=== PATIENT | female | born 2000 | race Asian ===

== ENCOUNTER → 2018-08-10 04:15 | Emergency (ER) | payer OTHER ==
[~2018-08-10 04:15] MED LIST: Ibuprofen TAB* 600 MG PO PRN
--- NOTE | 2018-08-10 04:54 | ED ---
Lower Extremity - HPI Summary HPI Summary: This patient is a 18 year old F presenting to [facility] with a chief complaint of a sprained ankle since yesterday. She reports that the swelling and pain has worsened today. Patient reports bruising on left big toenail. She did not have an x-ray on her foot. - History of Current Complaint Chief Complaint: EDExtremityLower Stated Complaint: "L ANKLE INJURY" PER PT Time Seen by Provider: 08/10/18 04:35 Hx Obtained From: Patient Mechanism Of Injury: Twisted Onset of Pain: Immediate, Post Accident Onset/Duration: Still Present Severity Initially: Severe Severity Currently: Severe Pain Intensity: 7 Pain Scale Used: 0-10 Numeric Timing: Constant Location: Is Discrete @ - Left ankle Aggravating Factor(s): Ambulation Able to Bear Weight: Yes - With pain - Allergies/Home Medications Allergies/Adverse Reactions: Allergies Allergy/AdvReac Type Severity Reaction Status Date / Time No Known Allergies Allergy Verified 08/10/18 04:22 PMH/Surg Hx/FS Hx/Imm Hx Sensory History: Denies: Hx Deafness Opthamlomology History: Reports: Hx Contacts or Glasses EENT History: Denies: Hx Deafness Infectious Disease History: No Infectious Disease History: Denies: Traveled Outside the [place] in Last 30 Days - Family History Known Family History: Negative: Diabetes - Social History Alcohol Use: None Substance Use Type: Reports: None Smoking Status (MU): Never Smoked Tobacco Review of Systems Negative: Fever Positive: Other - Left ankle pain, bruising on left big toenail All Other Systems Reviewed And Are Negative: Yes Physical Exam - Summary Physical Exam Summary: VITAL SIGNS: Reviewed. GENERAL: Patient is a well-developed and nourished (MALE OR FEMALE) who is lying comfortable in the stretcher. Patient is not in any acute respiratory distress. HEAD AND FACE: No signs of trauma. No ecchymosis, hematomas or skull depressions. No sinus tenderness. EYES: PERRLA, EOMI x 2, No injected conjunctiva, no nystagmus. EARS: Hearing grossly intact. Ear canals and tympanic membranes are within normal limits. MOUTH: Oropharynx within normal limits. NECK: Supple, trachea is midline, no adenopathy, no JVD, no carotid bruit, no c- spine tenderness, neck with full ROM CHEST: Symmetric, no tenderness at palpation LUNGS: Clear to auscultation bilaterally. No wheezing or crackles. CVS: Regular rate and rhythm, S1 and S2 present, no murmurs or gallops appreciated. ABDOMEN: Soft, non-tender. No signs of distention. No rebound no guarding, and no masses palpated. Bowel sounds are normal. EXTREMITIES: Mild tenderness over the left ankle. FROM in all major joints, no edema, no cyanosis or clubbing. NEURO: Alert and oriented x 3. No acute neurological deficits. Speech is normal and follows commands. SKIN: Dry and warm Triage Information Reviewed: Yes Vital Signs On Initial Exam: Initial Vitals Temp Pulse Resp BP Pulse Ox 98 F 59 16 112/72 100 08/10/18 04:17 08/10/18 04:17 08/10/18 04:17 08/10/18 04:17 08/10/18 04:17 Vital Signs Reviewed: Yes Diagnostics - Vital Signs Vital Signs Temp Pulse Resp BP Pulse Ox 08/10/18 04:17 98 F 59 16 112/72 100 - Laboratory Lab Statement: Any lab studies that have been ordered have been reviewed, and results considered in the medical decision making process. - Radiology Left ankle x-ray Radiology Interpretation Completed By: ED Physician Summary of Radiographic Findings: 05:14 - No fracture. Pending official report. Lower Extremity Course/Dx - Course Course Of Treatment: This patient is a 18 year old F presenting to [facility] with a chief complaint of a sprained ankle since yesterday. The left ankle x-ray showed no fracture. Patient will be d/c home with a dx of left sprained ankle and instructions to follow up with carley Woods, on Saturday08/11/18. - Diagnoses Provider Diagnoses: Left ankle sprain Discharge - Sign-Out/Discharge Documenting (check all that apply): Patient Departure - D/C home Patient Received Moderate/Deep Sedation with Procedure: No - Discharge Plan Condition: Stable Disposition: HOME Prescriptions: Ibuprofen TAB* [Motrin TAB* 600 MG] 600 mg PO Q6H PRN #30 tab PRN Reason: Pain Patient Education Materials: Ankle Sprain (ED) Referrals: Ashlee Gunderson MD [Medical Doctor] - 1 Day Additional Instructions: Follow up with carley Woods, on Saturday08/11/18. PLEASE RETURN TO THE ED IMMEDIATELY FOR WORSENING OR CONCERNING SYMPTOMS. - Attestation Statements Document Initiated by Scribe: Yes Documenting Scribe: Edgar Irwin Provider For Whom Scribe is Documenting (Include Credential): Reynaldo Joe MD Scribe Attestation: IEdgar, scribed for Reynaldo Joe MD on 08/10/18 at 0520. Status of Scribe Document: Ready
[2018-08-10 05:47] VITALS: BP 113/68
== END | disposition home or self-care (01) ==
LOC: ED 04:15
DX: S93.402A Sprain of unspecified ligament of left ankle, initial encounter (principal); S90.112A Contusion of left great toe without damage to nail, initial encounter; M25.572 Pain in left ankle and joints of left foot; X58.XXXA Exposure to other specified factors, initial encounter; Y92.9 Unspecified place or not applicable
CPT/HCPCS: 99282; A9270-GY